=== PATIENT | female | born 1950 | race Caucasian/White ===

== ENCOUNTER 2023-06-14 04:29 | Day surgery (SDC) | payer BC, OTHER ==
[2023-06-12 15:49] VITALS: BMI 32.0
[2023-06-14 10:06] VITALS: TEMP 98.4
[2023-06-14 10:43] VITALS: BP 134/75; PULSE 74; RESP 20
== END 2023-06-14 10:46 | disposition home or self-care (01) ==
LOC: JASU-ENDO 04:29
PROVIDERS: ATTEND Internal Medicine Gastroenterology
PROC: 0DJD8ZZ Inspection of Lower Intestinal Tract, Via Natural or Artificial Opening Endoscopic (ICD-10-PCS; principal; 2023-06-14 10:00)
DX: Z12.11 Encounter for screening for malignant neoplasm of colon (principal); K57.30 Diverticulosis of large intestine without perforation or abscess without bleeding; I10 Essential (primary) hypertension